=== PATIENT | female | born 1995 | race Caucasian/White ===

== ENCOUNTER 2017-07-17 17:35 | Emergency (ER) | payer BC ==
[2017-07-17 17:54] VITALS: BP 138/91
--- NOTE | 2017-07-17 18:27 | EDM.PDOC ---
ED HPI GENERAL MEDICAL PROBLEM - General Chief Complaint: Genitourinary Problem Stated Complaint: UTI Time Seen by Provider: 07/17/17 18:01 Source of Information: Reports: Patient History Limitations: Reports: No Limitations - History of Present Illness INITIAL COMMENTS - FREE TEXT/NARRATIVE: 21 yo female presents to ER with complaint of dysuria that started last evening and has continued throughout the day. Last UTI was over a year ago. denies fever, chills, headache, flank or back pain. - Related Data Allergies Allergy/AdvReac Type Severity Reaction Status Date / Time No Known Allergies Allergy Verified 07/17/17 17:58 Home Meds: Home Meds l-Norgest/E.estradion-E.estrad [Ashlyna 0.15-0.03-0.01 mg Tab] 1 each PO ASDIRECTED 05/04/17 [History] Past Medical History - Past Health History Medical/Surgical History: Denies Medical/Surgical History Social & Family History - Tobacco Use Smoking Status *Q: Never Smoker - Caffeine Use Caffeine Use: Reports: Soda - Recreational Drug Use Recreational Drug Use: No ED ROS GENERAL - Review of Systems Review Of Systems: See Below Constitutional: Denies: Fever, Chills Respiratory: Denies: Shortness of Breath Cardiovascular: Denies: Chest Pain GI/Abdominal: Denies: Abdominal Pain : Reports: Dysuria ED EXAM, RENAL/ - Physical Exam Exam: See Below Exam Limited By: No Limitations General Appearance: Alert, WD/WN, No Apparent Distress Respiratory/Chest: No Respiratory Distress, Lungs Clear, Normal Breath Sounds. No: Crackles, Rhonchi, Wheezing Cardiovascular: Regular Rate, Rhythm, No Murmur, No Rub GI/Abdominal: Normal Bowel Sounds, Soft, Non-Tender Back Exam: Normal Inspection, Full Range of Motion. No: CVA Tenderness (R), CVA Tenderness (L) Skin Exam: Warm, Dry, Intact Course - Vital Signs Last Recorded V/S: Last Vital Signs Temp 37.2 C 07/17/17 17:53 Pulse 107 H 07/17/17 17:53 Resp 18 07/17/17 17:53 BP 138/91 H 07/17/17 17:53 Pulse Ox 98 07/17/17 17:53 - Orders/Labs/Meds Orders: Active Orders 24 hr Category Date Time Status UA W/MICROSCOPIC [URIN] Urgent Lab 07/17/17 17:49 Ordered Sulfamethoxazole/Trimethoprim [Septra DS] Med 07/17/17 18:30 Active 1 tab PO DAILY Medication Orders Trimethoprim/Sulfamethoxazole (Septra Ds) 1 tab PO DAILY [facility] Labs: Laboratory Tests 07/17/17 Range/Units 17:49 Urine Color [place] Urine Appearance Cloudy Urine pH 5.0 (4.5-8.0) Ur Specific [place] 1.015 (1.008-1.030) Urine Protein 500 H (NEGATIVE) mg/dL Urine Glucose (UA) Normal (NEGATIVE) mg/dL Urine Ketones Negative (NEGATIVE) mg/dL Urine Occult Blood Large (NEGATIVE) Urine Nitrite Positive H (NEGATIVE) Urine Bilirubin Moderate (NEGATIVE) Urine Urobilinogen >=12 H (NORMAL) mg/dL Ur Leukocyte Esterase Negative (NEGATIVE) Urine RBC 5-10 H (0-5) Urine WBC 20-30 H (0-5) Ur Epithelial Cells Moderate Amorphous Sediment Not seen Urine Bacteria Many Urine Mucus Not seen Urine Other Meds: Medications Generic Name Dose Route Start Last Admin Trade Name Esvin PRN Reason Stop Dose Admin Trimethoprim/Sulfamethoxazole 1 tab 07/17/17 18:30 Septra Ds PO DAILY [facility] Departure - Departure Time of Disposition: 18:26 Disposition: Home, Self-Care 01 Condition: Good Clinical Impression: UTI, Urinary tract infectious disease - Discharge Information Instructions: Urinary Tract Infection, Adult, [id number] Referrals: Gisela Garcia CNM [Primary Care Provider] - Forms: ED Department Discharge Additional Instructions: Bactrim DS first dose was given tonight prescription given for completion of antibiotics increase fluid intake - My Orders Last 24 Hours: My Active Orders 07/17/17 18:30 Sulfamethoxazole/Trimethoprim [Septra DS] 1 tab PO DAILY - Assessment/Plan Last 24 Hours: My Active Orders 07/17/17 18:30 Sulfamethoxazole/Trimethoprim [Septra DS] 1 tab PO DAILY
[2017-07-17] MEDS ORDERED: Sulfamethoxazole/Trimethoprim 800-160 MG Tab PO SCH (18:30)
== END 2017-07-17 18:37 | disposition home or self-care (01) ==
LOC: JP.ED 17:35
DX: N39.0 Urinary tract infection, site not specified (principal)
CPT/HCPCS: 81001; 99284; A9270

== ENCOUNTER 2020-10-08 07:48 | Day surgery (SDC) | payer BC ==
[~2020-10-08 07:48] MED LIST: Midazolam 1 MG/ML 2 ML SDV ONE
[2020-10-08] MEDS ORDERED: Nozin Nasal Sanitizer NASBOTH ONE (08:15)
[2020-10-08] MEDS ORDERED: Propofol 200 MG/20 ML SDV ONE ×2 (08:19→11:09)
[2020-10-08] MEDS ORDERED: Midazolam 1 MG/ML 2 ML SDV ONE (08:19)
[2020-10-08] MEDS ORDERED: fentaNYL 100 MCG/2 ML SDV ONE ×2 (08:19→08:54)
[2020-10-08] MEDS ORDERED: Bupivacaine 0.5% 30 ML SDV ONE ×2 (08:21→08:31)
[2020-10-08] MEDS ORDERED: Lactated Ringers 1,000 ML IV SCH (08:30)
[2020-10-08] MEDS ORDERED: ceFAZolin 1 GM in Premix Bag 1 BAG IV ONE (09:00)
[2020-10-08] MEDS ORDERED: Lactated Ringers 1,000 ML ONE (10:44)
[2020-10-08 12:04] VITALS: BP 122/78; PULSE 86
[2020-10-08] MEDS ORDERED: Acetaminophen/oxyCODONE 325-5 MG Tab PO PRN (12:34)
--- NOTE | 2020-10-08 20:59 | OR ---
DATE OF PROCEDURE: 10/08/2020 SURGEON: Sheldon Ward MD PREOPERATIVE DIAGNOSIS: Superior labrum anterior and posterior lesion, right shoulder. POSTOPERATIVE DIAGNOSIS: Superior labrum anterior and posterior lesion, right shoulder, consisting primarily of superior and posterior labrum. PROCEDURE: Repair of superior labrum. LETTERPRESS SETTER: MICHELLE Rae. ANESTHESIA: Interscalene block with sedation. INDICATIONS: Tonia is a 25-year-old female, who sustained an injury to her right shoulder approximately 2 years ago. She has had persistent pain since then. She has failed a course of conservative treatment with physical therapy, activity modifications, etc. MRI shows a small defect in the superior labral attachment. She was therefore taken to the operating room for arthroscopic evaluation and repair of the superior labrum. Risks, benefits, and potential complications were discussed. DESCRIPTION OF PROCEDURE: After adequate anesthesia was obtained, the patient was placed in the lateral decubitus position and secured with a dominguez bag positioner. Right shoulder and arm were prepped and draped in a sterile fashion and 10 pounds of traction was placed on the shoulder traction unit. Standard posterior portals established and the scope was introduced. Glenohumeral joint was inspected, which revealed no evidence of articular cartilage damage to the humeral head or glenoid. Anterior labrum was intact completely normal in appearance. The inferior labrum also was intact. Biceps tendon was normal in appearance. The anterior labrum up to the biceps tendon was intact, starting just slightly posterior to the biceps and running over the superior posterior edge the glenoid labrum demonstrated a peel back exposing the superior-posterior corner of the glenoid. Subscapularis was intact. The undersurface of the rotator cuff was completely normal. The decision was made to proceed with the repair of the superior labrum. Anterior portal was established. An accessory anterior portal was established through the rotator cuff interval. An elevator was used to mobilize the labrum. Shaver and bur were then used to lightly decorticate the superior aspect of the glenoid. A Gryphon suture anchor was placed just posterior to the takeoff of the biceps tendon superiorly. Due to the more posterior location of the lesion an adequate angle could not be obtained for placement of the anchor in this position and accessory posterior portal was established. A 2nd Mitek Gryphon anchor was then placed. Using a curved bird beak suture passer, one limb of each of the sutures from the anterior anchor were passed around the labrum. One of the suture pairs from the posterior anchor was placed around the labrum again using a bird beak suture passer. A decision was made to proceed with only one suture in this location and the other suture was removed from the anchor. The sutures were then tied, placing the knot away from the edge of the glenoid. Once this was accomplished, a hooked probe was utilized to test the repair and was found that the labrum was securely fixed to the edge of the glenoid. The scope was then withdrawn. The scope was then placed into the subacromial space. Working through the anterior portal, the bursa was cleared for visualization and the bursal surface of the rotator cuff was inspected. This was found to be completely normal in appearance. The arm was taken through internal and external rotation visualizing the entire cuff with no abnormalities. The scope was then withdrawn. Port sites were closed with 3-0 Monocryl and Steri-Strips. Sterile dressing was then applied. The patient tolerated the procedure very well. There were no complications and taken from the operating room in stable condition. Sheldon Ward MD /[id number] MATTIE
== END 2020-10-08 13:15 | disposition home or self-care (01) ==
LOC: JP.SDS 07:48
PROVIDERS: ATTEND Specialist
DX: S43.431A Superior glenoid labrum lesion of right shoulder, initial encounter (principal); G89.29 Other chronic pain; X58.XXXA Exposure to other specified factors, initial encounter
CPT/HCPCS: 29807; 36415; 80048; 81025; 85027; A9270; C1713; J0690; J2250; J2704; J3010; J3490; J7120

== ENCOUNTER 2020-11-09 19:50 | Emergency (ER) | payer BC ==
[2020-11-09 20:03] VITALS: BP 137/85; PULSE 97
--- NOTE | 2020-11-09 20:21 | EDM.PDOC ---
ED HPI GENERAL MEDICAL PROBLEM - General Chief Complaint: Genitourinary Problem Stated Complaint: POSSIBLE UTI Time Seen by Provider: 11/09/20 19:58 Source of Information: Reports: Patient History Limitations: Reports: No Limitations - History of Present Illness INITIAL COMMENTS - FREE TEXT/NARRATIVE: 25 yo female presents with 48 hours of worsening dysuria. denies flank or back pain. denies fever. - Related Data Allergies Allergy/AdvReac Type Severity Reaction Status Date / Time No Known Allergies Allergy Verified 11/09/20 20:04 Home Meds: Home Meds l-Norgest/E.estradion-E.estrad [Ashlyna 0.15-0.03-0.01 mg Tab] 1 tab PO ASDIRECTED 05/04/17 [History] Past Medical History - Past Health History Medical/Surgical History: Denies Medical/Surgical History Musculoskeletal History: Reports: Other (See Below) Other Musculoskeletal History: right shoulder pain - Infectious Disease History Infectious Disease History: Reports: Chicken Pox - Past Surgical History Musculoskeletal Surgical History: Reports: None Other Musculoskeletal Surgeries/Procedures:: s/p R shoulder scope 10/08/20 Dermatological Surgical History: Reports: None Social & Family History - Family History Family Medical History: No Pertinent Family History Cardiac: Reports: CAD, SOB on Exertion Neurological: Reports: Alzheimers Disease Oncologic: Reports: Uterine - Tobacco Use Tobacco Use Status *Q: Never Tobacco User - Caffeine Use Caffeine Use: Reports: Soda - Recreational Drug Use Recreational Drug Use: No ED ROS GENERAL - Review of Systems Review Of Systems: See Below Constitutional: Denies: Fever, Chills, Fatigue Respiratory: Denies: Shortness of Breath Cardiovascular: Denies: Chest Pain : Reports: Dysuria, Frequency. Denies: Flank Pain ED EXAM, GI/ABD - Physical Exam Exam: See Below Exam Limited By: No Limitations General Appearance: Alert, WD/WN, No Apparent Distress Respiratory/Chest: No Respiratory Distress, Lungs Clear, Normal Breath Sounds Cardiovascular: Normal Peripheral Pulses, Regular Rate, Rhythm GI/Abdominal Exam: Soft, Non-Tender Course - Vital Signs Last Recorded V/S: Last Vital Signs Temp 36.5 C 11/09/20 20:08 Pulse 97 11/09/20 20:08 Resp 16 11/09/20 20:08 BP 137/85 11/09/20 20:08 Pulse Ox 99 11/09/20 20:08 - Orders/Labs/Meds Labs: Laboratory Tests 11/09/20 Range/Units 20:02 Urine Color Yellow (YELLOW) Urine Appearance Turbid A (CLEAR) Urine pH 5.5 (5.0-8.0) Ur Specific [place] >= 1.030 (1.008-1.030) Urine Protein 30 H (NEGATIVE) mg/dL Urine Glucose (UA) Negative (NEGATIVE) mg/dL Urine Ketones Negative (NEGATIVE) mg/dL Urine Occult Blood Large H (NEGATIVE) Urine Nitrite Positive H (NEGATIVE) Urine Bilirubin Negative (NEGATIVE) Urine Urobilinogen 0.2 (0.2-1.0) EU/dL Ur Leukocyte Esterase Moderate H (NEGATIVE) Urine RBC 50-75 H (0-5) Urine WBC 75-100 H (0-5) Ur Epithelial Cells Moderate Amorphous Sediment Not seen Urine Bacteria Many Urine Mucus Few Departure - Departure Time of Disposition: 20:19 Disposition: Home, Self-Care 01 Condition: Good Clinical Impression: UTI (urinary tract infection) Qualifiers: Urinary tract infection type: acute cystitis Hematuria presence: with hematuria Qualified Code(s): N30.01 - Acute cystitis with hematuria - Discharge Information *PRESCRIPTION DRUG MONITORING PROGRAM REVIEWED*: Not Applicable *COPY OF PRESCRIPTION DRUG MONITORING REPORT IN PATIENT SITA: Not Applicable Instructions: Urinary Tract Infection, Adult, [id number] Referrals: Gisela Garcia CNM [Primary Care Provider] - Additional Instructions: Bactrim DS 1 tablet twice daily for 3 days increase fluid intake with goal of 64 ounces per day Sepsis Event Note (ED) - Evaluation Sepsis Screening Result: No Definite Risk - Focused Exam Vital Signs: Vital Signs Temp Pulse Resp BP Pulse Ox 11/09/20 20:08 36.5 C 97 16 137/85 99 11/09/20 20:01 36.5 C 97 16 137/85 99
== END 2020-11-09 20:35 | disposition home or self-care (01) ==
LOC: JP.ED 19:50
DX: N30.01 Acute cystitis with hematuria (principal)
CPT/HCPCS: 81001; 99283

== ENCOUNTER 2022-03-15 08:53 | Day surgery (SDC) | payer BC ==
[~2022-03-15 08:53] MED LIST changes: +Bupivacaine 0.5% 30 ML SDV ONE; +Lactated Ringers 1,000 ML IV SCH; +Nozin Nasal Sanitizer NASBOTH ONE; +Propofol 200 MG/20 ML SDV ONE; +fentaNYL 100 MCG/2 ML SDV ONE
[2022-03-15] MEDS ORDERED: Nozin Nasal Sanitizer NASBOTH ONE (09:30)
[2022-03-15] MEDS ORDERED: ceFAZolin 1 GM in Premix Bag 1 BAG IV ONE ×4 (09:30)
[2022-03-15] MEDS ORDERED: Lactated Ringers 1,000 ML IV SCH (09:30)
[2022-03-15] MEDS ORDERED: Bupivacaine 0.5% 30 ML SDV ONE (10:56)
[2022-03-15] MEDS ORDERED: Midazolam 1 MG/ML 2 ML SDV ONE (12:34)
[2022-03-15] MEDS ORDERED: Propofol 200 MG/20 ML SDV ONE (12:58)
[2022-03-15] MEDS ORDERED: Acetaminophen/HYDROcodone 325-5 MG Tab PO PRN (14:05)
[2022-03-15 14:53] VITALS: PULSE 96
[2022-03-15 15:03] VITALS: BP 122/79
== END 2022-03-15 15:19 | disposition home or self-care (01) ==
LOC: JP.SDS 08:53
PROVIDERS: ATTEND Specialist
DX: M75.41 Impingement syndrome of right shoulder (principal); E66.9 Obesity, unspecified; Z98.890 Other specified postprocedural states; Z79.899 Other long term (current) drug therapy; Z68.27 Body mass index [BMI] 27.0-27.9, adult
CPT/HCPCS: 36415; 80048; 81025; 85025; A9270-GY; J0690; J2250; J2704; J3010; J3490; J7120